=== PATIENT | female | born 1950 | race Caucasian/White ===

== ENCOUNTER 2023-01-06 06:23 | Day surgery (SDC) | payer MEDICARE, OTHER, SELFPAY ==
--- NOTE | 2023-01-03 14:06 | HO.ANESPROP2 ---
HPI - Anesthesia Eval Consult details Narrative: 72yo F for Colonoscopy [facility] [place] Past Medical History Medical History (Updated 01/03/23 @ 13:18 by Cesia Rouse, RN) Glaucoma HTN (hypertension) Tubular adenoma Surgical History Surgical History (Updated 01/03/23 @ 13:18 by Cesia Rouse, RN) H/O colonoscopy Social History Social History Patient Tobacco Use Status: Never used Tobacco Second Hand Smoke Exposure: No Use of substances other than those prescribed or required for medical reasons: No Are you DNR?: No Advance Directives: No Advance Directives Information Provided: Yes Advance Directives on File: No Meds Allergies Allergy/AdvReac Type Severity Reaction Status Date / Time No Known Allergies Allergy Verified 01/03/23 13:16 Home Medications Medication Instructions Recorded Confirmed Last Taken Type alendronate 70 mg tablet 70 mg PO QWEEK 01/03/23 01/03/23 Unknown History amlodipine 5 mg tablet 5 mg PO DAILY 01/03/23 01/03/23 01/06/23 History omega 1-oqm-qkg-fish oil 1,000 mg 1 cap PO DAILY 01/03/23 01/03/23 12/29/22 History (120 mg-180 mg) capsule (Fish Oil) timolol maleate 0.5 % eye gel 01/03/23 Unknown History forming solution travoprost 0.004 % eye drops drp ophthalmic (eye) 01/03/23 Unknown History Exam Exam Date and Time: January 03, 2023 1406 Assessment and Plan Assessment Anesthesia Assessment: Chart Reviewed
[2023-01-06 06:56] VITALS: BMI 20.8
[2023-01-06 06:58] VITALS: BP 146/77; PULSE 71; RESP 16; TEMP 36.2; O2SAT 99
[2023-01-06] MEDS: Lactated Ringers 1,000 ML 100 ML IVCONT (07:05)
[2023-01-06 08:23] VITALS: BP 87/44; PULSE 61; RESP 18; TEMP 36.3; O2SAT 99
--- NOTE | 2023-01-06 08:23 | PM.OP ---
Brief Operative Note Date of Service: 01/06/23 Pre-op diagnosis: Screening Post-op diagnosis: other (Diverticulosis) Procedure: Colonoscopy to the cecum and TI Surgeon: Ramana Andrea Anesthesia: MAC Was an Guitar Repair Technician used for this Procedure?: No Estimated blood loss (mL): 0 Pathology: none sent Condition: stable Disposition: PACU
[2023-01-06 08:38] VITALS: BP 102/58; PULSE 66; RESP 18; O2SAT 100
--- NOTE | 2023-01-06 08:42 | OP_ITS ---
DATE OF SERVICE: 01/06/2023 SURGEON: Ramana Andrea MD INDICATIONS: The patient presents for evaluation of personal history of tubular adenoma of the colon, colorectal cancer screening, family history of colon cancer. Full consent obtained from her for this, including risks of bleeding and perforation. PREOPERATIVE DIAGNOSIS: POSTOPERATIVE DIAGNOSIS: PROCEDURE PERFORMED: Colonoscopy to the cecum and terminal ileum. ESTIMATED BLOOD LOSS: COMPLICATIONS: ANESTHESIA: Monitored anesthesia care. ASSISTANTS: SPECIMENS: PREOPERATIVE DIAGNOSES: Colorectal cancer screening, personal history of tubular adenoma of the colon, family history of colon cancer. POSTOPERATIVE DIAGNOSES: Colorectal cancer screening, personal history of tubular adenoma of the colon, family history of colon cancer. Diverticulosis and internal hemorrhoids. DESCRIPTION OF PROCEDURE: The patient was placed in the left lateral decubitus position. The digital rectal exam revealed no abnormalities. The Olympus video pediatric colonoscope was entered into the rectum and advanced easily to the cecum. Once in the cecum, I did identify normal-appearing cecal pouch with appendiceal orifice and a normal-appearing ileocecal valve. The terminal ileum was cannulated and appeared normal. The scope was withdrawn back in the colon. The entire cecum and ileocecal valve appeared normal. The scope was slowly withdrawn assessing all mucosal surfaces carefully. Preparation was excellent. I did not visualize any sign of polyps, colitis, nor angiodysplasia. There was a mild amount of sigmoid diverticulosis. In the rectum, scope was retroflexed visualizing small internal hemorrhoids, but no other pathology. The rectal mucosa appeared normal. The scope was straightened and withdrawn from the patient. She tolerated the procedure well and was returned to recovery area in stable condition. IMPRESSION: 1. Mild diverticulosis. 2. Small internal hemorrhoids. PLAN: Given today's negative colonoscopy, as well as a negative colonoscopy in 2011 and 2017, I do not think she will need any further screening colonoscopies. She will see me on a p.r.n. basis. MD CHAD Cid/JIMBO / [id number]
[2023-01-06 08:53] VITALS: BP 141/77; PULSE 62; RESP 18; TEMP 36.3; O2SAT 99
== END 2023-01-06 09:25 | disposition home or self-care (01) ==
PROVIDERS: PCP Internal Medicine; Visit Provider Internal Medicine
PROC: 0DJD8ZZ Inspection of Lower Intestinal Tract, Via Natural or Artificial Opening Endoscopic (ICD-10-PCS; CPT 45378; principal; 2023-01-06 07:30)
DX: Z12.11 Encounter for screening for malignant neoplasm of colon (principal); K57.30 Diverticulosis of large intestine without perforation or abscess without bleeding; K64.8 Other hemorrhoids; I10 Essential (primary) hypertension; Z86.010 Personal history of colon polyps; Z83.71 Family history of colonic polyps; Z80.0 Family history of malignant neoplasm of digestive organs; Z79.899 Other long term (current) drug therapy
CPT/HCPCS: 45378